=== PATIENT | female | born 1960 | race Caucasian/White ===

== ENCOUNTER 2017-10-20 07:26 | Day surgery (SDC) | payer OTHER ==
[~2017-10-20 07:26] MED LIST: VANCOMYCIN/NS 1 gm 1 GM/250 ML BAG IV SCH
[2017-10-20] MEDS ORDERED: MIDAZOLAM HCL 2 MG/2 ML INJ ONE (07:39)
[2017-10-20] MEDS ORDERED: LIDOCAINE 1% MPF 5 ML VIAL ONE (07:39)
[2017-10-20] MEDS ORDERED: PROPOFOL 200 MG/20 ML VIAL IV ONE (07:39)
[2017-10-20] MEDS ORDERED: FENTANYL CITR 100 MCG/2 ML ONE ×2 (07:39→08:49)
[2017-10-20] MEDS ORDERED: NA CHLORIDE 0.9% 1,000 ML ONE (07:44)
[2017-10-20] MEDS ORDERED: BUPIVACA 0.25%/EPI 0.0005%/PF 30 ML VIAL ONE (08:18)
[2017-10-20] MEDS ORDERED: KETOROLAC 30 MG/ML INJ ONE (09:16)
--- NOTE | 2017-10-20 09:21 | P.OP ---
Drier Helper: Jian Thornton Preoperative diagnosis: Internal and External Anal Hemorrhoids Postoperative diagnosis: Internal and External Anal Hemorrhoids Primary procedure: Exam under anesthesia Secondary procedure: Excision of Internal and External Anal Hemorrhoids Anesthesia: Gen + Local Estimated blood loss: <10cc Specimen: Hemorrhoids Findings: large Internal and External Anal Hemorrhoids Complications: None Transferred to: Recovery Room Condition: Good
[2017-10-20] MEDS ORDERED: ONDANSETRON 4 MG/2 ML VIAL ONE ×2 (09:27→10:27)
[2017-10-20] MEDS ORDERED: MEPERIDINE HCL 50 MG/ML AMP ONE (09:46)
[2017-10-20] MEDS ORDERED: HYDROCODONE/APAP 7.5/325 MG TAB ONE (10:22)
--- NOTE | 2017-10-20 11:52 | OP ---
Date of Procedure: 10/20/2017 Surgeon: Jese Woodson MD, Clinical Research Analyst: Francesca Valentine. Preoperative Diagnosis: Large internal and external anal hemorrhoids. Postoperative Diagnosis: Large internal and external anal hemorrhoids. Procedures Performed: 1.Exam under anesthesia. 2.Excision of internal and external anal hemorrhoids. Anesthesia: General endotracheal plus local with 0.25% Marcaine. Estimated Blood Loss: Less than 10 cc. Specimen: Hemorrhoids. Findings: Large internal and external anal hemorrhoids. Complications: None. Disposition: Transferred recovery room in good condition. Procedure In Detail: After informed consent was obtained, the patient was brought to the operating r oom, prepped and draped in the usual sterile fashion. After adequate anesthesia was achieved, the pa tient was in lithotomy position. I performed an exam under anesthesia and found that the patient had only enlarged internal and external hemorrhoids. These were grade 3/grade 4 internal hemorrhoids as well as some external hemorrhoids with skin tags associated. They were predominantly in the right a nterior and posterior as well as left lateral position. These were quite dilated enlarged. I scored the mucosa over the top of this using electrocautery after appropriately anesthetizing with 0.25% Ma rcaine with epinephrine circumferentially around the anal ring attempting a block in the region. Aft er the mucosa was scored, I used the LigaSure device to dissect out the hemorrhoid and ligate the hem orrhoid in a columnar fashion taking out the linear columns of the hemorrhoids in the right anterior, posterior and left lateral positions. After these were removed, I irrigated the area and inspected for proper hemostasis. No additional hemostatic maneuvers required at this time. I then reapproxima jese some of the internal mucosa using a 3-0 chromic gut to reapproximate the mucosa overlying this ar ea after irrigating the area copiously. Good approximation of the tissue was appreciated at this dori e using the interrupted circumferential chromic gut sutures and only 3 of these were used in this are a. I once again irrigated the area until completely clear and hydrated a Gelfoam and placed Gelfoam into the anal canal at the end the procedure. I then placed a sterile dressing on top. The patient tolerated the procedure well without complication and transferred to the PACU in good condition. Al l counts were correct at the end of the case. TK/MODL Voice ID: [id number] Report ID: [id number]
== END 2017-10-20 10:55 | disposition home or self-care (01) ==
LOC: OR 07:26
PROVIDERS: ATTEND Surgery
PROC: 06BY0ZC Excision of Hemorrhoidal Plexus, Open Approach (ICD-10-PCS; principal; 2017-10-20 08:30)
DX: K64.3 Fourth degree hemorrhoids (principal); K64.4 Residual hemorrhoidal skin tags; E11.9 Type 2 diabetes mellitus without complications; I10 Essential (primary) hypertension; E78.00 Pure hypercholesterolemia, unspecified; Z88.0 Allergy status to penicillin; Z88.6 Allergy status to analgesic agent; Z80.8 Family history of malignant neoplasm of other organs or systems
CPT/HCPCS: 82962; 88304; J2175; J2250; J2405; J3010; J3370; J7030